=== PATIENT | female | born 1950 | race Caucasian/White ===

== ENCOUNTER 2016-12-28 04:37 | Observation (INO) | payer MEDICARE, OTHER ==
[2016-12-28] MEDS: ASPIRIN 325 MG TAB PO (06:04)
[2016-12-28] MEDS: ONDANSETRON 4 MG INJ IV (06:04)
[2016-12-28] MEDS: morphine 4 MG/ML VIAL IV (06:04)
[2016-12-28] MEDS: NITROGLYCERIN 2% 1 GM OINT PKT TD (06:05)
[2016-12-28 06:55] LABS: ADD MAN DIFF? NO
[2016-12-28 06:56] LABS: BASOPHILS % 0.5 % (0.0-2.0); EOSINOPHILS # 0.2 10^3/ul (0.0-0.5); HEMOGLOBIN 12.6 g/dl (12.0-16.0); LYMPHOCYTES # 2.4 10^3/ul (0.8-2.9); LYMPHOCYTES % 31.1 % (15.0-51.0); MEAN CORPUSCULAR HEMOGLOBIN 29.7 pg (29.0-33.0); MEAN CORPUSCULAR HGB CONC 34.1 g/dl (32.0-37.0); MEAN CORPUSCULAR VOLUME 87.3 fl (82.0-101.0); MEAN PLATELET VOLUME 9.6 fl (7.4-10.4); MONOCYTE # 0.5 10^3/ul (0.3-0.9); NEUTROPHIL # 4.5 10^3/ul (1.6-7.5); NEUTROPHILS % 58.1 % (39.0-77.0); PLATELET COUNT 320 10^3/UL (140-415); RED BLOOD COUNT 4.24 10^6/ul (4.20-5.40); RED CELL DISTRIBUTION WIDTH 13.6 % (11.5-14.5)
[2016-12-28 06:56] LABS: WHITE BLOOD COUNT 7.7 10^3/ul (4.8-10.8)
[2016-12-28 07:17] LABS: ALANINE AMINOTRANSFERASE 37 IU/L (13-69); ALBUMIN 4.3 g/dl (3.3-4.9); ALBUMIN/GLOBULIN RATIO 1.22; ALKALINE PHOSPHATASE 91 IU/L (42-121); ANION GAP 16 (8-16); ASPARTATE AMINO TRANSFERASE 32 IU/L (15-46); BILIRUBIN,INDIRECT 0.4 mg/dl (0-1.1); BILIRUBIN,TOTAL 0.4 mg/dl (0.2-1.3); BLOOD UREA NITROGEN 16 mg/dl (7-20); CALCIUM 9.7 mg/dl (8.4-10.2); CARBON DIOXIDE 26 mmol/L (21-31); CHLORIDE 103 mmol/L (97-110); CREATININE 0.56 mg/dl (0.44-1.00); GLUCOSE 96 mg/dl (70-220); SODIUM 141 mmol/L (135-144); TOTAL PROTEIN 7.8 g/dl (6.1-8.1)
[2016-12-28 07:35] LABS: TROPONIN-I < 0.012 ng/ml (0.00-0.12)
[2016-12-28] MEDS ORDERED: ACETAMINOPHEN 325 MG TAB PO (10:30)
[2016-12-28] MEDS ORDERED: ONDANSETRON 4 MG INJ IV (10:30)
[2016-12-28 13:39] LABS: TROPONIN-I < 0.012 ng/ml (0.00-0.12)
== END 2016-12-28 14:53 | disposition home or self-care (01) ==
LOC: TEL 10:20 → E/R 15:48
DX: R07.9 Chest pain, unspecified (principal); I10 Essential (primary) hypertension
CPT/HCPCS: 36415; 71010; 80053; 84484; 85025; 93005; 96374; 96375; 99285-25; G0378

== ENCOUNTER 2017-04-17 03:54 | Observation (INO) | payer MEDICARE, OTHER ==
[2017-04-17] MEDS: morphine 4 MG/ML VIAL IV (05:30)
[2017-04-17] MEDS: ONDANSETRON 4 MG INJ IV (05:30)
[2017-04-17] MEDS ORDERED: ALBUTEROL/IPRATROPIUM (NEB) 3 ML AMP HHN (06:00)
[2017-04-17] MEDS ORDERED: NACL 0.9% 3 ML SYG IV (06:00)
[2017-04-17] MEDS ORDERED: NITROGLYCERIN (SL) 0.4 MG TAB SL (06:00)
[2017-04-17] MEDS ORDERED: ACETAMINOPHEN 325 MG TAB PO (06:00)
[2017-04-17] MEDS ORDERED: hydrALAzine 20 MG INJ IV (06:00)
[2017-04-17] MEDS ORDERED: ONDANSETRON 4 MG INJ IV (06:00)
[2017-04-17] MEDS ORDERED: morphine 2 MG INJ IV (06:00)
[2017-04-17 06:12] LABS: ADD MAN DIFF? NO
[2017-04-17 06:22] LABS: WHITE BLOOD COUNT 7.6 10^3/ul (4.8-10.8)
[2017-04-17 06:22] LABS: BASOPHILS % 0.5 % (0.0-2.0); EOSINOPHILS # 0.2 10^3/ul (0.0-0.5); EOSINOPHILS % 2.6 % (0.0-7.0); HEMATOCRIT 37.5 % (37.0-47.0); HEMOGLOBIN 12.8 g/dl (12.0-16.0); LYMPHOCYTES # 2.8 10^3/ul (0.8-2.9); LYMPHOCYTES % 36.6 % (15.0-51.0); MEAN CORPUSCULAR HEMOGLOBIN 30.1 pg (29.0-33.0); MEAN CORPUSCULAR HGB CONC 34.1 g/dl (32.0-37.0); MEAN CORPUSCULAR VOLUME 88.2 fl (82.0-101.0); MEAN PLATELET VOLUME 9.9 fl (7.4-10.4); MONOCYTE # 0.4 10^3/ul (0.3-0.9); MONOCYTES % 5.8 % (0.0-11.0); NEUTROPHIL # 4.1 10^3/ul (1.6-7.5); NEUTROPHILS % 54.2 % (39.0-77.0); PLATELET COUNT 317 10^3/UL (140-415); RED BLOOD COUNT 4.25 10^6/ul (4.20-5.40); RED CELL DISTRIBUTION WIDTH 14.2 % (11.5-14.5)
[2017-04-17 07:11] LABS: ANION GAP 18 (8-16); BLOOD UREA NITROGEN 20 mg/dl (7-20); CALCIUM 9.4 mg/dl (8.4-10.2); CARBON DIOXIDE 25 mmol/L (21-31); CHLORIDE 105 mmol/L (97-110); GLUCOSE 101 mg/dl (70-220); POTASSIUM 4.8 mmol/L (3.5-5.1); SODIUM 143 mmol/L (135-144)
[2017-04-17 07:16] LABS: TROPONIN-I < 0.012 ng/ml (0.00-0.12)
[2017-04-17 07:49] LABS: CREATINE KINASE 96 IU/L (23-200)
[2017-04-17] MEDS: ASPIRIN 81 MG TAB PO (09:39)
[2017-04-17] MEDS: METOPROLOL 25 MG TAB PO (09:40)
[2017-04-17] MEDS: HEPARIN 5,000 UNIT/0.5 ML VIAL SC (09:41)
[2017-04-17] MEDS: LISINOPRIL 10 MG TAB PO (10:39)
[2017-04-17] MEDS: HYDROCHLOROTHIAZIDE 25 MG TAB PO (10:39)
[2017-04-17 12:45] LABS: CREATINE KINASE 57 IU/L (23-200)
[2017-04-17 12:58] LABS: CK-MB 1.12 ng/ml (0.0-2.4)
[2017-04-17 13:11] LABS: TROPONIN-I < 0.012 ng/ml (0.00-0.12)
== END 2017-04-17 16:45 | disposition home or self-care (01) ==
LOC: E/R 03:54 → MS3 05:48
DX: R07.9 Chest pain, unspecified (principal); I16.0 Hypertensive urgency; I10 Essential (primary) hypertension; R20.0 Anesthesia of skin; Z79.82 Long term (current) use of aspirin
CPT/HCPCS: 36415; 71045; 80048; 82550; 82553; 84484; 85025; 93005; 93306; 93880; 99285-25

== ENCOUNTER → 2017-09-20 | Outpatient (CLI) | payer MEDICARE, OTHER | END | disposition home or self-care (01) | LOC: HKI 13:47 | DX: M17.11 Unilateral primary osteoarthritis, right knee (principal); Z88.0 Allergy status to penicillin | CPT/HCPCS: 20610; 73564-RT ==

== ENCOUNTER 2018-06-16 23:56 | Inpatient (IN) | payer MEDICARE, OTHER ==
[2018-06-17 02:29] LABS: ADD MAN DIFF? NO
[2018-06-17 02:33] LABS: BASOPHILS % 0.3 % (0.0-2.0); EOSINOPHILS # 0.4 10^3/ul (0.0-0.5); HEMATOCRIT 36.2 % (37.0-47.0); LYMPHOCYTES # 3.5 10^3/ul (0.8-2.9); LYMPHOCYTES % 29.6 % (15.0-51.0); MEAN CORPUSCULAR HEMOGLOBIN 28.7 pg (29.0-33.0); MEAN CORPUSCULAR HGB CONC 33.1 g/dl (32.0-37.0); MEAN CORPUSCULAR VOLUME 86.6 fl (82.0-101.0); MEAN PLATELET VOLUME 9.6 fl (7.4-10.4); MONOCYTE # 0.8 10^3/ul (0.3-0.9); MONOCYTES % 6.9 % (0.0-11.0); NEUTROPHIL # 7.1 10^3/ul (1.6-7.5); NEUTROPHILS % 59.9 % (39.0-77.0); PLATELET COUNT 319 10^3/UL (140-415); RED BLOOD COUNT 4.18 10^6/ul (4.20-5.40); RED CELL DISTRIBUTION WIDTH 14.6 % (11.5-14.5)
[2018-06-17 02:33] LABS: WHITE BLOOD COUNT 11.8 10^3/ul (4.8-10.8)
[2018-06-17 02:50] LABS: ALANINE AMINOTRANSFERASE 24 IU/L (13-69); ALBUMIN 4.3 g/dl (3.3-4.9); ALBUMIN/GLOBULIN RATIO 1.02; ALKALINE PHOSPHATASE 130 IU/L (42-121); ANION GAP 11 (5-13); ASPARTATE AMINO TRANSFERASE 29 IU/L (15-46); BILIRUBIN,INDIRECT 0.5 mg/dl (0-1.1); BILIRUBIN,TOTAL 0.5 mg/dl (0.2-1.3); BLOOD UREA NITROGEN 17 mg/dl (7-20); CALCIUM 9.7 mg/dl (8.4-10.2); CARBON DIOXIDE 27 mmol/L (21-31); CHLORIDE 104 mmol/L (97-110); CREATININE 0.51 mg/dl (0.44-1.00); Estimated GFR > 60 mL/min (>60); GLUCOSE 119 mg/dl (70-220); LIPASE 75 U/L (23-300); POTASSIUM 3.7 mmol/L (3.5-5.1); SODIUM 142 mmol/L (135-144); TOTAL PROTEIN 8.5 g/dl (6.1-8.1)
[2018-06-17 02:51] LABS: PROTIME 12.3 Sec (11.9-14.9)
[2018-06-17 02:52] LABS: PARTIAL THROMBOPLASTIN TIME 31.6 Sec (23.0-35.0)
[2018-06-17] MEDS: DIPHENHYDRAMINE 50 MG INJ IV (02:56)
[2018-06-17] MEDS: ONDANSETRON 4 MG INJ IV (02:56)
[2018-06-17] MEDS: SOD CHLORIDE 0.9% 500 ML IV (02:56)
[2018-06-17] MEDS: morphine 4 MG/ML VIAL IV (02:57)
[2018-06-17 03:19] LABS: ADD UMIC YES; UR ASCORBIC ACID NEGATIVE (NEGATIVE); UR BACTERIA FEW /HPF (NONE SEEN); UR BILIRUBIN (Dip) NEGATIVE (NEGATIVE); UR BLOOD (Dip) 1+ mg/dL (NEGATIVE); UR CLARITY SLIGHTLY CLOUDY (CLEAR); UR COLOR YELLOW (YELLOW); UR GLUCOSE (Dip) NEGATIVE (NEGATIVE); UR KETONES (Dip) TRACE mg/dL (NEGATIVE); UR LEUKOCYTE ESTERASE (Dip) TRACE Leu/ul (NEGATIVE); UR MUCUS FEW /HPF (NONE SEEN); UR NITRITE (Dip) NEGATIVE (NEGATIVE); UR RBC 3 /HPF (0-5); UR SPECIFIC GRAVITY (Dip) 1.021 (1.003-1.030); UR SQUAMOUS EPITHELIAL CELL FEW /HPF (FEW); UR TOTAL PROTEIN (Dip) NEGATIVE (NEGATIVE); UR UROBILINOGEN (Dip) 1+ mg/dL (NEGATIVE); UR WBC 9 /HPF (0-5)
[2018-06-17] MEDS: CLINDAMYCIN 600 MG/D5W (PMX) 50 ML IVPB (04:31)
[2018-06-17 06:02] LABS: C-REACTIVE PROTEIN 20.5 mg/dl (0.0-0.9)
[2018-06-17 06:23] LABS: ERYTHROCYTE SEDIMENTATION RATE 54 mm/Hr (0-30)
[2018-06-17] MEDS ORDERED: VANCOMYCIN IV PER PHARMACY XX (06:30)
[2018-06-17] MEDS ORDERED: ONDANSETRON 4 MG INJ IV (06:30)
[2018-06-17] MEDS ORDERED: OXYCODONE/ACETAMINOPHEN (5/325) TAB PO (06:30)
[2018-06-17] MEDS ORDERED: DOCUSATE SODIUM 100 MG CAP PO (06:30)
[2018-06-17] MEDS ORDERED: NACL 0.9% 3 ML SYG IV (06:30)
[2018-06-17] MEDS ORDERED: BISACODYL (EC) 5 MG TAB PO (06:30)
[2018-06-17] MEDS: ACETAMINOPHEN 325 MG TAB PO (07:56)
[2018-06-17] MEDS: ATENOLOL 25 MG TAB PO (08:38)
[2018-06-17] MEDS: MULTIVITAMINS/MINERALS TAB PO (08:38)
[2018-06-17] MEDS: CALCIUM/VITAMIN D (500/200) TAB PO (08:38)
[2018-06-17] MEDS: HYDROCHLOROTHIAZIDE 25 MG TAB PO (08:38)
[2018-06-17] MEDS: POLYETHYLENE GLYCOL 17 GM PACKET PO (08:39)
[2018-06-17] MEDS: AZTREONAM 1 GM/NS (PMX) 50 ML IVPB (09:28)
[2018-06-17] MEDS: VANCOMYCIN HCL 1.25 GM in SOD CHLORIDE 0.9% 250 ML IVPB (10:16)
[2018-06-17] MEDS ORDERED: LATANOPROST 0.005% 2.5 ML OPH BOTH EYES (21:00)
[2018-06-17] MEDS ORDERED: LACTOBACILLUS RHAMNOSUS CAP PO (21:00)
[2018-06-17] MEDS ORDERED: VANCOMYCIN 1 GM 250 ML IVPB (22:00)
== END 2018-06-17 16:45 | disposition home or self-care (01) | DRG 603 ==
LOC: E/R 23:56 → 2NE 06-17 04:00
DX: L03.116 Cellulitis of left lower limb (principal); H40.9 Unspecified glaucoma; I10 Essential (primary) hypertension; F17.200 Nicotine dependence, unspecified, uncomplicated; Z90.49 Acquired absence of other specified parts of digestive tract; Z88.0 Allergy status to penicillin; Z79.82 Long term (current) use of aspirin
CPT/HCPCS: 36415; 73630-LT; 80053; 81001; 83690; 85025; 85610; 85651; 85730; 86140; 87040-91; 96374; 96375; 99285-25

== ENCOUNTER 2018-07-16 02:05 | Emergency (ER) | payer MEDICARE, OTHER ==
[2018-07-16] MEDS ORDERED: hydrALAzine 20 MG INJ (02:33)
[2018-07-16] MEDS ORDERED: ONDANSETRON 4 MG INJ (03:19)
[2018-07-16] MEDS ORDERED: morphine 4 MG/ML VIAL (03:19)
[2018-07-16] MEDS: hydrALAzine 20 MG INJ IV (03:20)
[2018-07-16] MEDS ORDERED: LORAZEPAM 0.5 MG TAB (03:45)
[2018-07-16] MEDS: LORAZEPAM 0.5 MG TAB PO (03:59)
[2018-07-16 04:01] LABS: ADD MAN DIFF? NO
[2018-07-16 04:17] LABS: ALANINE AMINOTRANSFERASE 28 IU/L (13-69); ALBUMIN 4.2 g/dl (3.3-4.9); ALBUMIN/GLOBULIN RATIO 1.13; ALKALINE PHOSPHATASE 103 IU/L (42-121); ANION GAP 10 (5-13); ASPARTATE AMINO TRANSFERASE 96 IU/L (15-46); BASOPHILS % 0.4 % (0.0-2.0); BILIRUBIN,INDIRECT 0.4 mg/dl (0-1.1); BILIRUBIN,TOTAL 0.4 mg/dl (0.2-1.3); BLOOD UREA NITROGEN 17 mg/dl (7-20); CALCIUM 9.4 mg/dl (8.4-10.2); CARBON DIOXIDE 27 mmol/L (21-31); CHLORIDE 104 mmol/L (97-110); CREATININE 0.61 mg/dl (0.44-1.00); EOSINOPHILS # 0.2 10^3/ul (0.0-0.5); EOSINOPHILS % 1.9 % (0.0-7.0); Estimated GFR > 60 mL/min (>60); GLUCOSE 118 mg/dl (70-220); HEMATOCRIT 35.1 % (37.0-47.0); HEMOGLOBIN 11.5 g/dl (12.0-16.0); LYMPHOCYTES # 3.2 10^3/ul (0.8-2.9); LYMPHOCYTES % 37.9 % (15.0-51.0); MEAN CORPUSCULAR HEMOGLOBIN 28.7 pg (29.0-33.0); MEAN CORPUSCULAR HGB CONC 32.8 g/dl (32.0-37.0); MEAN CORPUSCULAR VOLUME 87.5 fl (82.0-101.0); MEAN PLATELET VOLUME 10.4 fl (7.4-10.4); MONOCYTE # 0.7 10^3/ul (0.3-0.9); MONOCYTES % 8.8 % (0.0-11.0); NEUTROPHIL # 4.3 10^3/ul (1.6-7.5); NEUTROPHILS % 50.8 % (39.0-77.0); PLATELET COUNT 277 10^3/UL (140-415); POTASSIUM 3.6 mmol/L (3.5-5.1); RED BLOOD COUNT 4.01 10^6/ul (4.20-5.40); RED CELL DISTRIBUTION WIDTH 14.5 % (11.5-14.5); SODIUM 141 mmol/L (135-144); TOTAL PROTEIN 7.9 g/dl (6.1-8.1)
[2018-07-16 04:17] LABS: WHITE BLOOD COUNT 8.4 10^3/ul (4.8-10.8)
[2018-07-16 04:29] LABS: TROPONIN-I < 0.012 ng/ml (0.000-0.120)
== END 2018-07-16 04:59 | disposition home or self-care (01) ==
LOC: E/R 02:05
DX: I10 Essential (primary) hypertension (principal); R11.10 Vomiting, unspecified; R19.7 Diarrhea, unspecified; R51 Headache; Z79.82 Long term (current) use of aspirin
CPT/HCPCS: 70450; 71046; 80053; 84484; 85025; 96374; 99285-25